=== PATIENT | male | born 1995 | race Caucasian/White ===

== ENCOUNTER 2023-06-12 11:32 | Emergency (ER) | payer OTHER ==
[~2023-06-12] VITALS: Ht 170.2 cm; Wt 79.4 kg
[2023-06-12 11:43] VITALS: BP 117/85; PULSE 97; RESP 15; TEMP 97.7; O2SAT 96
[2023-06-12] MEDS ORDERED: NAPR-1704 PO (14:52)
[2023-06-12] MEDS ORDERED: ACET-10509 PO (14:52)
[2023-06-12 14:59] VITALS: BP 117/85; PULSE 97; RESP 15; TEMP 97.7; O2SAT 96
== END 2023-06-12 14:59 | disposition home or self-care (01) ==
LOC: MED 11:32
DX: S72.422A Displaced fracture of lateral condyle of left femur, initial encounter for closed fracture (principal); Z79.899 Other long term (current) drug therapy; Z79.1 Long term (current) use of non-steroidal anti-inflammatories (NSAID); X58.XXXA Exposure to other specified factors, initial encounter; Y92.89 Other specified places as the place of occurrence of the external cause; Y93.89 Activity, other specified; Y99.8 Other external cause status
CPT/HCPCS: 29505; 73562; 73700; 99284